=== PATIENT | male | born 1950 | race Caucasian/White ===

== ENCOUNTER 2018-02-22 08:39 | Outpatient (REF) | payer BC, SELFPAY ==
[2018-02-22 21:39] LABS: Anion Gap 9.3 mmol/L (3-11); BUN 18 mg/dL (7-18); CO2 25.7 mmol/L (21.0-32.0); CREATININE 1.38 mg/dL (0.70-1.30); Calcium 8.9 mg/dL (8.5-10.1); Chloride 101 mmol/L (98-107); Cholesterol 168 mg/dL (50-200); Estimated GFR 50.94 (mL/min/1.73m2); Glucose 102 mg/dL (70-100); HDL Cholesterol 70 mg/dL (40-60); LDL CHOLESTEROL 88 mg/dL (<100); Potassium 4.8 mmol/L (3.5-5.1); Sodium 136 mmol/L (136-145); TSH (W/Ref FT4) 5.26 uIU/mL (0.358-3.74); Triglyceride 68 mg/dL (30-150)
[2018-02-22 21:58] LABS: FREE T4 1.23 ng/dL (0.76-1.46)
== END 2018-02-22 08:40 ==
LOC: NCHCN 08:39
PROVIDERS: PCP Internal Medicine
DX: Z00.00 Encounter for general adult medical examination without abnormal findings (principal); I10 Essential (primary) hypertension; E03.9 Hypothyroidism, unspecified; E66.9 Obesity, unspecified
CPT/HCPCS: 80048; 80061; 83721; 84439; 84443

== ENCOUNTER 2019-03-07 09:08 | Outpatient (REF) | payer BC, SELFPAY ==
[2019-03-07 21:57] LABS: BUN 17 mg/dL (7-18); CREATININE 1.29 mg/dL (0.70-1.30); Calcium 9.1 mg/dL (8.5-10.1); Calculated LDL 68 mg/dL; Chloride 100 mmol/L (98-107); Cholesterol 144 mg/dL (50-200); Estimated GFR 54.91 (mL/min/1.73m2); Glucose 100 mg/dL (70-100); HDL Cholesterol 61 mg/dL (40-60); Potassium 5.4 mmol/L (3.5-5.1); Sodium 136 mmol/L (136-145); TSH (W/Ref FT4) 4.11 uIU/mL (0.36-3.74); Triglyceride 77 mg/dL (30-150)
[2019-03-07 22:20] LABS: FREE T4 1.19 ng/dL (0.76-1.46)
== END 2019-03-07 09:28 ==
LOC: NCHCN 09:08
PROVIDERS: PCP Internal Medicine; Visit Provider Internal Medicine
DX: E03.9 Hypothyroidism, unspecified (principal); I10 Essential (primary) hypertension; I25.5 Ischemic cardiomyopathy
CPT/HCPCS: 80048; 80061; 83721; 84439; 84443

== ENCOUNTER 2020-02-07 13:31 | Outpatient (REF) | payer BC, SELFPAY ==
[2020-02-07 21:46] LABS: Anion Gap 8.3 mmol/L (3-11); BUN 20 mg/dL (7-18); CO2 26.7 mmol/L (21.0-32.0); CREATININE 1.25 mg/dL (0.70-1.30); Calcium 9.3 mg/dL (8.5-10.1); Calculated LDL 69 mg/dL (<100); Chloride 103 mmol/L (98-107); Cholesterol 149 mg/dL (<200); Estimated GFR 56.94 (mL/min/1.73m2); Glucose 105 mg/dL (74-106); HDL Cholesterol 66 mg/dL (40-60); Potassium 4.8 mmol/L (3.5-5.1); Sodium 138 mmol/L (136-145); TSH 2.64 uIU/mL (0.36-3.74); Triglyceride 72 mg/dL (<150)
== END 2020-02-07 13:51 ==
LOC: NCHCN 13:31
PROVIDERS: PCP Internal Medicine; Visit Provider Internal Medicine
DX: I25.10 Atherosclerotic heart disease of native coronary artery without angina pectoris (principal); E03.9 Hypothyroidism, unspecified; I10 Essential (primary) hypertension
CPT/HCPCS: 80048; 80061; 84443

== ENCOUNTER 2020-07-30 14:49 | Outpatient (REF) | payer BC, SELFPAY ==
[2020-07-30 13:30] LABS: Glucose 107 mg/dL (74-106)
== END 2020-07-30 15:09 ==
LOC: NCHCN 14:49
PROVIDERS: PCP Nurse Practitioner Family; Visit Provider Internal Medicine
DX: R73.01 Impaired fasting glucose (principal); I25.10 Atherosclerotic heart disease of native coronary artery without angina pectoris; E03.9 Hypothyroidism, unspecified
CPT/HCPCS: 82947; 83036

== ENCOUNTER 2021-01-28 09:04 | Outpatient (REF) | payer BC, SELFPAY ==
[2021-01-28 17:02] LABS: Hemoglobin A1C 6.1 % (<5.7)
[2021-01-28 17:11] LABS: ALT 44 U/L (16-63); AST 25 U/L (15-37); Albumin 4.2 g/dL (3.4-5.0); Alkaline Phosphatase 74 U/L (46-116); Anion Gap 9.4 mmol/L (3-11); BUN 23 mg/dL (7-18); Bilirubin, Total 0.5 mg/dL (0.2-1.0); CO2 27.6 mmol/L (21.0-32.0); CREATININE 1.2 mg/dL (0.70-1.30); Calcium 9.5 mg/dL (8.5-10.1); Calculated LDL 79 mg/dL (<100); Chloride 103 mmol/L (98-107); Cholesterol 164 mg/dL (<200); Estimated GFR 59.51 (mL/min/1.73m2); Glucose 96 mg/dL (74-106); HDL Cholesterol 69 mg/dL (40-60); Potassium 4.9 mmol/L (3.5-5.1); Sodium 140 mmol/L (136-145); Total Protein 7.5 g/dL (6.4-8.2); Triglyceride 83 mg/dL (<150)
== END 2021-01-28 09:05 | disposition home or self-care (01) ==
LOC: NCHCN 09:04
PROVIDERS: PCP Nurse Practitioner Family; Visit Provider Internal Medicine
DX: E03.9 Hypothyroidism, unspecified (principal); I10 Essential (primary) hypertension; I25.10 Atherosclerotic heart disease of native coronary artery without angina pectoris; R73.09 Other abnormal glucose; Z00.00 Encounter for general adult medical examination without abnormal findings
CPT/HCPCS: 80053; 80061; 83036; 84443

== ENCOUNTER 2021-02-08 14:43 | Outpatient (REF) | payer BC, SELFPAY ==
[2021-02-11 08:59] LABS: PSA, Screening 6.2 ng/mL (0.0-6.5)
== END 2021-02-08 14:44 | disposition home or self-care (01) ==
LOC: NCHCN 14:43
PROVIDERS: PCP Nurse Practitioner Family; Visit Provider Internal Medicine
DX: Z00.00 Encounter for general adult medical examination without abnormal findings (principal); Z12.5 Encounter for screening for malignant neoplasm of prostate
CPT/HCPCS: 84153

== ENCOUNTER 2021-02-13 21:15 | Outpatient (REF) | payer BC, SELFPAY ==
[2021-02-15 12:32] LABS: HSV 1 DNA Result Negative (Negative); HSV 2 DNA Result Negative (Negative); Varicella Zoster DNA Result Positive (Negative)
== END 2021-02-13 21:16 | disposition home or self-care (01) ==
LOC: NCHCN 21:15
PROVIDERS: Internal Medicine; PCP Nurse Practitioner Family; Visit Provider Nurse Practitioner Family
DX: B02.9 Zoster without complications (principal)
CPT/HCPCS: 87529; 87798

== ENCOUNTER 2022-02-05 15:51 | Outpatient (REF) | payer BC, SELFPAY ==
[2022-02-05 18:07] LABS: HCT 40.8 % (40.0-50.0); MCH 32.3 pg (27.0-33.0); MCHC 34.3 % (32.0-36.0); MCV 94 fL (80-95); MPV 10.2 fL (8.0-11.0); Platelet Count 198 10^3/uL (130-400); RBC 4.33 10^6/uL (4.36-5.78); RDW 12.1 % (11.8-14.1); RDW-SD 42.4 fL
[2022-02-05 18:29] LABS: Anion Gap 5.8 mmol/L (3-11); BUN 22 mg/dL (7-18); CO2 25.2 mmol/L (21.0-32.0); CREATININE 1.2 mg/dL (0.70-1.30); Calcium 8.7 mg/dL (8.5-10.1); Chloride 102 mmol/L (98-107); Estimated GFR 59.35 (mL/min/1.73m2); Glucose 125 mg/dL (74-106); Potassium 4.7 mmol/L (3.5-5.1); Sodium 133 mmol/L (136-145)
== END 2022-02-05 15:52 | disposition home or self-care (01) ==
LOC: NCHCN 15:51
PROVIDERS: PCP Nurse Practitioner Family; Visit Provider Family Medicine
DX: R42 Dizziness and giddiness (principal)
CPT/HCPCS: 80048; 85027

== ENCOUNTER 2022-02-12 16:40 | Outpatient (REF) | payer BC, SELFPAY ==
[2022-02-13 10:48] LABS: Lyme Ab w Rflx to Lyme Confirm Negative (Negative)
[2022-02-17 22:04] LABS: Anaplasma phagocytophilum Negative (Negative); B. miyamotoi PCR Negative (Negative); Babesia divergens/MO-1 Negative (Negative); Babesia duncani Negative (Negative); Babesia microti Negative (Negative); Ehrlichia chaffeensis Negative (Negative); Ehrlichia ewingii/canis Negative (Negative); Ehrlichia muris eauclairensis Negative (Negative)
== END 2022-02-12 16:41 | disposition home or self-care (01) ==
LOC: NCHCN 16:40
PROVIDERS: PCP Nurse Practitioner Family; Visit Provider Family Medicine
DX: R42 Dizziness and giddiness (principal); R11.0 Nausea; R53.83 Other fatigue
CPT/HCPCS: 87798; 86618

== ENCOUNTER 2022-04-22 17:07 | Outpatient (REF) | payer BC, SELFPAY ==
[2022-04-22 15:07] LABS: BUN 19 mg/dL (7-18); CREATININE 1.2 mg/dL (0.70-1.30); Calcium 9.2 mg/dL (8.5-10.1); Calculated LDL 50 mg/dL (<100); Chloride 98 mmol/L (98-107); Cholesterol 120 mg/dL (<200); Estimated GFR 63.46 (mL/min/1.73m2); Glucose 102 mg/dL (74-106); HDL Cholesterol 56 mg/dL (40-60); Potassium 5.1 mmol/L (3.5-5.1); Sodium 131 mmol/L (136-145); TSH 1.52 uIU/mL (0.36-3.74); Triglyceride 72 mg/dL (<150)
[2022-04-22 16:02] LABS: Hemoglobin A1C 6.3 % (<5.7)
== END 2022-04-22 17:08 | disposition home or self-care (01) ==
LOC: NCHCN 17:07
PROVIDERS: PCP Nurse Practitioner Family; Visit Provider Internal Medicine
DX: E03.9 Hypothyroidism, unspecified (principal); I25.10 Atherosclerotic heart disease of native coronary artery without angina pectoris; R73.09 Other abnormal glucose; I10 Essential (primary) hypertension
CPT/HCPCS: 80048; 80061; 83036; 84443

== ENCOUNTER 2022-05-28 22:27 | Outpatient (REF) | payer BC, SELFPAY ==
[2022-05-28 15:54] LABS: Anion Gap 6.1 mmol/L (3-11); CO2 26.9 mmol/L (21.0-32.0); Chloride 103 mmol/L (98-107); Potassium 4.4 mmol/L (3.5-5.1); Sodium 136 mmol/L (136-145)
== END 2022-05-28 22:28 | disposition home or self-care (01) ==
LOC: NCHCN 22:27
PROVIDERS: PCP Nurse Practitioner Family; Visit Provider Internal Medicine
DX: E87.1 Hypo-osmolality and hyponatremia (principal)
CPT/HCPCS: 80051

== ENCOUNTER 2023-05-01 09:36 | Outpatient (REF) | payer BC, SELFPAY ==
[2023-05-01 15:57] LABS: HCT 39.2 % (40.0-50.0); HGB 13.3 g/dL (13.5-17.5); MCH 32.7 pg (27.0-33.0); MCHC 33.9 % (32.0-36.0); MCV 96 fL (80-95); MPV 10.3 fL (8.0-11.0); Platelet Count 192 10^3/uL (130-400); RBC 4.07 10^6/uL (4.36-5.78); RDW 12.5 % (11.8-14.1); RDW-SD 44.8 fL
[2023-05-01 16:31] LABS: Hemoglobin A1C 5.9 % (<5.7)
[2023-05-01 18:17] LABS: Anion Gap 9.7 mmol/L (3-11); BUN 17 mg/dL (7-18); CO2 23.3 mmol/L (21.0-32.0); CREATININE 1.2 mg/dL (0.70-1.30); Calcium 8.9 mg/dL (8.5-10.1); Chloride 104 mmol/L (98-107); Estimated GFR 63.07 (mL/min/1.73m2); Glucose 153 mg/dL (74-106); Potassium 4.3 mmol/L (3.5-5.1); Sodium 137 mmol/L (136-145); TSH 2.37 uIU/mL (0.36-3.74)
== END 2023-05-01 09:37 | disposition home or self-care (01) ==
LOC: NCHCN 09:36
PROVIDERS: PCP Nurse Practitioner Family; Visit Provider Internal Medicine
DX: E03.9 Hypothyroidism, unspecified (principal); I25.10 Atherosclerotic heart disease of native coronary artery without angina pectoris; R73.09 Other abnormal glucose
CPT/HCPCS: 80048; 85027; 83036; 84443

== ENCOUNTER 2023-06-15 10:07 | Outpatient (REF) | payer BC, SELFPAY ==
[2023-06-15 16:21] LABS: HGB 13.3 g/dL (13.5-17.5); MCH 32.8 pg (27.0-33.0); MCHC 34.1 % (32.0-36.0); MCV 96 fL (80-95); MPV 9.8 fL (8.0-11.0); Platelet Count 260 10^3/uL (130-400); RBC 4.06 10^6/uL (4.36-5.78); RDW 12.5 % (11.8-14.1); RDW-SD 44.3 fL; WBC 6.54 10^3/uL (4.4-10.8)
[2023-06-15 16:34] LABS: Iron 103 ug/dL (65-175); Total Iron Binding Capacity 290 ug/dL (250-450); Transferrin Sat 36 % (20-55)
[2023-06-15 16:58] LABS: Ferritin 334 ng/mL (26-388); Folate 16.1 ng/mL (8.6-20.0); Vitamin B12 808 pg/mL (193-986)
== END 2023-06-15 10:08 | disposition home or self-care (01) ==
LOC: NCHCN 10:07
PROVIDERS: PCP Nurse Practitioner Family; Visit Provider Internal Medicine
DX: D64.9 Anemia, unspecified (principal)
CPT/HCPCS: 85027; 82607; 82728; 82746; 83540; 83550

== ENCOUNTER 2023-09-11 16:09 | Outpatient (REF) | payer BC, SELFPAY ==
[2023-09-11 14:35] LABS: HCT 38.9 % (40.0-50.0); HGB 13.3 g/dL (13.5-17.5); MCH 32.5 pg (27.0-33.0); MCHC 34.2 % (32.0-36.0); MCV 95 fL (80-95); Platelet Count 201 10^3/uL (130-400); RBC 4.09 10^6/uL (4.36-5.78); RDW 12.1 % (11.8-14.1); RDW-SD 42.5 fL; WBC 5.69 10^3/uL (4.4-10.8)
[2023-09-11 15:01] LABS: Hemoglobin A1C 5.6 % (<5.7)
[2023-09-11 15:13] LABS: Calculated LDL 74 mg/dL (<100); Cholesterol 158 mg/dL (<200); HDL Cholesterol 75 mg/dL (40-60); Triglyceride 48 mg/dL (<150)
== END 2023-09-11 16:10 | disposition home or self-care (01) ==
LOC: NCHCN 16:09
PROVIDERS: PCP Nurse Practitioner Family; Referring Provider Internal Medicine; Visit Provider Internal Medicine
DX: R73.03 Prediabetes (principal); E78.00 Pure hypercholesterolemia, unspecified; D64.9 Anemia, unspecified
CPT/HCPCS: 80061; 85027; 83036

== ENCOUNTER 2023-10-06 22:13 | Outpatient (REF) | payer BC, SELFPAY ==
[2023-10-14 15:10] LABS: Testosterone, Free 6.46 ng/dL (3.08-11.3); Testosterone, Total 582 ng/dL (240-950)
== END 2023-10-06 22:14 | disposition home or self-care (01) ==
LOC: NCHCN 22:13
PROVIDERS: PCP Nurse Practitioner Family; Referring Provider Internal Medicine; Visit Provider Internal Medicine
DX: D64.9 Anemia, unspecified (principal); R53.83 Other fatigue
CPT/HCPCS: 84402; 84403

== ENCOUNTER 2024-03-21 18:37 | Outpatient (REF) | payer BC, SELFPAY ==
[2024-03-21 16:13] LABS: HCT 42.4 % (40.0-50.0); HGB 14.3 g/dL (13.5-17.5); MCH 32.6 pg (27.0-33.0); MCHC 33.7 % (32.0-36.0); MCV 97 fL (80-95); Platelet Count 237 10^3/uL (130-400); RBC 4.38 10^6/uL (4.36-5.78); RDW-SD 43.4 fL; WBC 6.48 10^3/uL (4.4-10.8)
[2024-03-21 16:38] LABS: ALT 39 U/L (16-63); AST 32 U/L (15-37); Albumin 3.7 g/dL (3.4-5.0); Alkaline Phosphatase 59 U/L (46-116); Anion Gap 5.2 mmol/L (3-11); BUN 25 mg/dL (7-18); Bilirubin, Total 0.47 mg/dL (0.2-1.0); CO2 28.8 mmol/L (21.0-32.0); CREATININE 1.4 mg/dL (0.70-1.30); Calcium 9.2 mg/dL (8.5-10.1); Calculated LDL 59 mg/dL (<100); Chloride 102 mmol/L (98-107); Cholesterol 150 mg/dL (<200); Estimated GFR 52.09 (mL/min/1.73m2); Glucose 98 mg/dL (74-106); HDL Cholesterol 80 mg/dL (40-60); Sodium 136 mmol/L (136-145); TSH 3.15 uIU/Ml (0.36-3.74); Total Protein 7.4 g/dL (6.4-8.2); Triglyceride 57 mg/dL (<150)
[2024-03-21 16:51] LABS: Hemoglobin A1C 5.8 % (<5.7)
== END 2024-03-21 18:38 | disposition home or self-care (01) ==
LOC: NCHCN 18:37
PROVIDERS: PCP Nurse Practitioner Family; Visit Provider Internal Medicine
DX: R73.03 Prediabetes (principal); I25.10 Atherosclerotic heart disease of native coronary artery without angina pectoris; D64.9 Anemia, unspecified
CPT/HCPCS: 80053; 80061; 85027; 83036; 84443

== ENCOUNTER 2024-09-13 08:44 | Outpatient (REF) | payer MEDICARE, BC, SELFPAY ==
[2024-09-13 14:40] LABS: HCT 41.3 % (40.0-50.0); HGB 14.1 g/dL (13.5-17.5); MCH 32.6 pg (27.0-33.0); MCHC 34.1 % (32.0-36.0); MCV 95 fL (80-95); Platelet Count 216 10^3/uL (130-400); RBC 4.33 10^6/uL (4.36-5.78); RDW 12.4 % (11.8-14.1); WBC 8.08 10^3/uL (4.4-10.8)
[2024-09-13 14:58] LABS: Hemoglobin A1C 5.9 % (<5.7)
[2024-09-13 15:06] LABS: Anion Gap 7.3 mmol/L (3-11); BUN 20 mg/dL (7-18); CO2 27.7 mmol/L (21.0-32.0); CREATININE 1.3 mg/dL (0.70-1.30); Calcium 9.4 mg/dL (8.5-10.1); Calculated LDL 52 mg/dL (<100); Chloride 105 mmol/L (98-107); Cholesterol 155 mg/dL (<200); Estimated GFR 56.93 (mL/min/1.73m2); Glucose 108 mg/dL (74-106); HDL Cholesterol 90 mg/dL (>or=40); Sodium 140 mmol/L (136-145); Triglyceride 65 mg/dL (<150)
== END 2024-09-13 08:45 | disposition home or self-care (01) ==
LOC: NCHCN 08:44
PROVIDERS: PCP Nurse Practitioner Family; Visit Provider Internal Medicine
DX: I25.10 Atherosclerotic heart disease of native coronary artery without angina pectoris (principal); R73.03 Prediabetes; I10 Essential (primary) hypertension
CPT/HCPCS: 80048; 80061; 85027; 83036

== ENCOUNTER 2024-09-16 14:37 | Outpatient (REF) | payer MEDICARE, BC, SELFPAY | END 2024-09-16 14:38 | disposition home or self-care (01) | LOC: NCHCN 14:37 | PROVIDERS: PCP Nurse Practitioner Family; Visit Provider Internal Medicine | DX: N18.31 Chronic kidney disease, stage 3a (principal) | CPT/HCPCS: 82043; 82570 ==

== ENCOUNTER 2025-04-06 08:57 | Outpatient (REF) | payer MEDICARE, BC, SELFPAY ==
[2025-04-06 15:08] LABS: HCT 37.2 % (40.0-50.0); HGB 12.8 g/dL (13.5-17.5); MCH 32.8 pg (27.0-33.0); MCHC 34.4 % (32.0-36.0); MCV 95 fL (80-95); MPV 10.3 fL (8.0-11.0); Platelet Count 225 10^3/uL (130-400); RBC 3.90 10^6/uL (4.36-5.78); RDW 12.3 % (11.8-14.1); RDW-SD 43.0 fL; WBC 7.74 10^3/uL (4.4-10.8)
[2025-04-06 15:25] LABS: Anion Gap 7.6 mmol/L (3-11); BUN 19 mg/dL (7-18); CO2 25.4 mmol/L (21.0-32.0); Calcium 8.8 mg/dL (8.5-10.1); Calculated LDL 47 mg/dL (<100); Chloride 105 mmol/L (98-107); Cholesterol 129 mg/dL (<200); Estimated GFR 77.52 (mL/min/1.73m2); Glucose 103 mg/dL (74-106); HDL Cholesterol 65 mg/dL (>or=40); Potassium 4.6 mmol/L (3.5-5.1); Sodium 138 mmol/L (136-145); TSH 0.33 uIU/mL (0.36-3.74); Triglyceride 89 mg/dL (<150)
[2025-04-06 17:16] LABS: Hemoglobin A1C 5.9 % (<5.7)
[2025-04-06 21:29] LABS: COMMENT (LAB VIEW ONLY) 87.41 mg/dL; Microalb ug/mg Crea 4.9 ug/mg Cr
== END 2025-04-06 08:58 | disposition home or self-care (01) ==
LOC: NCHCN 08:57
PROVIDERS: PCP Nurse Practitioner Family; Visit Provider Internal Medicine
DX: E03.9 Hypothyroidism, unspecified (principal); R73.03 Prediabetes; I10 Essential (primary) hypertension; E78.00 Pure hypercholesterolemia, unspecified
CPT/HCPCS: 80048; 80061; 85027; 82043; 82570; 83036; 84443

== ENCOUNTER 2025-06-20 15:26 | Outpatient (REF) | payer MEDICARE, BC, SELFPAY ==
[2025-06-20 15:01] LABS: TSH 3.76 uIU/mL (0.55-4.78)
[2025-06-21 00:37] LABS: PSA, Screening 2.7 ng/mL (<=6.5)
== END 2025-06-20 15:27 | disposition home or self-care (01) ==
LOC: NCHCN 15:26
PROVIDERS: PCP Nurse Practitioner Family; Visit Provider Internal Medicine
DX: Z12.5 Encounter for screening for malignant neoplasm of prostate (principal); E03.9 Hypothyroidism, unspecified
CPT/HCPCS: 84153; 84443